=== PATIENT | male | born 1960 | race Caucasian/White ===

== ENCOUNTER 2018-08-10 22:25 | Emergency (ER) | payer SELFPAY ==
[~2018-08-10] VITALS: Ht 165.1 cm; Wt 73.5 kg
[2018-08-11 00:22] VITALS: BP 141/89
== END 2018-08-11 00:22 | disposition home or self-care (01) ==
LOC: ED 22:25
DX: J45.901 Unspecified asthma with (acute) exacerbation (principal)
CPT/HCPCS: J2930; J7620